=== PATIENT | female | born 1970 | race Caucasian/White ===

== ENCOUNTER 2025-06-30 15:31 | Outpatient (OUT) | payer OTHER, SELFPAY ==
--- NOTE | 2025-06-30 | XR_ITS ---
[place] [id number] Patient Name: LUIS CHAVEZ MRN: [id number] date: 1970 Sex: F Assigned Patient Location: [facility] Current Patient Location: [facility] Accession/Order Number: [id number] Exam Date: 06/30/2025 15:48 Report Date: 06/30/2025 21:18 At the request of: ROLANDO COCHRAN DPMarsha Procedure: XR foot RT min 3V 3 views right foot HISTORY: Chronic lateral right foot pain. Inferior calcaneal spurring. Adequate bony alignment without acute displaced fracture. No significant degeneration. XR/XR foot RT min 3V IMPRESSION: Inferior calcaneal spurring. Impression dictated by: Demario Robles M.D. 06/30/2025 9:18 PM Dictation Location: [place] [address] Electronically authenticated by: [id number] Date: 06/30/2025 21:18
== END 2025-06-30 15:32 | disposition home or self-care (01) ==
LOC: RAD 15:37
PROVIDERS: PCP Nurse Practitioner Family; Visit Provider Podiatrist Foot & Ankle Surgery
DX: M79.671 Pain in right foot (principal); M77.31 Calcaneal spur, right foot
CPT/HCPCS: 73630